=== PATIENT | male | born 1970 | race Caucasian/White ===

== ENCOUNTER 2017-07-18 07:20 | Inpatient (IN) | payer OTHER ==
[~2017-07-18] VITALS: Ht 170.2 cm; Wt 77.2 kg
[2017-07-18] MEDS ORDERED: DILTIAZEM 5 MG/ML, 5ML IVPush STA (07:41)
[2017-07-18 07:55] LABS: HEMATOCRIT 47.6 % (39.2-51.8); HEMOGLOBIN 15.9 g/dL (13.7-18.0); WHITE BLOOD COUNT 10.1 x10^3/uL (3.4-10)
[2017-07-18] MEDS ORDERED: SODIUM CHLORIDE 0.9% 1,000ML IVBOLUS ONE (08:00)
[2017-07-18] MEDS ORDERED: ASPIRIN 81 MG TABLET CHEW PO ONE (08:00)
[2017-07-18] MEDS ORDERED: SODIUM CHLORIDE FLUSH 10ML SYR IVF ONE (08:00)
[2017-07-18] MEDS ORDERED: ASPIRIN 81 MG TABLET CHEW ONE (08:03)
[2017-07-18] MEDS ORDERED: DILTIAZEM 5 MG/ML, 5ML ONE ×2 (08:04→09:07)
[2017-07-18 08:09] LABS: BLOOD UREA NITROGEN 11 mg/dL (7-18)
[2017-07-18 08:17] LABS: IS PT STATUS REG ER OR PRE ER? YES
[2017-07-18] MEDS ORDERED: DILTIAZEM 5 MG/ML, 5ML IVPush ONE (08:30)
[2017-07-18 09:17] LABS: DAU SCREEN DISCLAIMER
[2017-07-18] MEDS ORDERED: LISI2.5T PO (09:38)
[2017-07-18] MEDS ORDERED: PANT40TA3 PO (09:38)
[2017-07-18] MEDS ORDERED: DILT180C53 PO (09:38)
[2017-07-18] MEDS ORDERED: METO50TA82 PO (09:38)
[2017-07-18] MEDS ORDERED: WARF2.5T73 PO (09:38)
[2017-07-18] MEDS ORDERED: FURO-93 PO (09:38)
[2017-07-18] MEDS ORDERED: SIMV20TA3 PO (09:38)
[2017-07-18] MEDS ORDERED: DILTIAZEM 125 MG in SODIUM CHLORIDE 0.9% 100 ML IV PRN (10:30)
[2017-07-18] MEDS ORDERED: ACETAMINOPHEN 325 MG TABLET PO PRN (11:30)
[2017-07-18] MEDS ORDERED: BISACODYL 10 MG SUPP PR PRN (11:30)
[2017-07-18] MEDS ORDERED: ONDANSETRON ODT 4 MG PO PRN (11:30)
[2017-07-18] MEDS ORDERED: hydrALAzine 20 MG/ML, 1ML IVPush PRN (11:30)
[2017-07-18] MEDS ORDERED: ENALAPRILAT 1.25 MG/ML, 2ML IVPush PRN (11:30)
[2017-07-18] MEDS ORDERED: ONDANSETRON 2MG/ML, 2ML IVPush PRN (11:30)
[2017-07-18] MEDS ORDERED: DOCUSATE 100 MG CAPSULE PO PRN (11:30)
[2017-07-18] MEDS ORDERED: POLYETHYLENE GLYCOL 17 GM PACKET PO PRN (11:30)
[2017-07-18] MEDS ORDERED: GUAIFENESIN/DM 200-20MG, 10ML UDC PO PRN (11:30)
[2017-07-18] MEDS ORDERED: HYDROcodone/APAP 5/325 TABLET PO PRN (11:30)
[2017-07-18] MEDS ORDERED: morphine SULFATE 10 MG/ML, 1ML IVPush PRN (11:30)
[2017-07-18 11:41] VITALS: BP 157/110
[2017-07-18] MEDS ORDERED: HEPARIN 5,000 UNITS/ML, 1ML IV ONE (12:00)
[2017-07-18] MEDS: HEPARIN 25,000 UNITS/500ML PMX 500 ML IV PRN (12:40)
[2017-07-18] MEDS: METOPROLOL TARTRATE 50 MG TABLET PO SCH ×2 (12:56→20:14)
[2017-07-18] MEDS: LISINOPRIL 5 MG TABLET PO SCH (12:56)
[2017-07-18] MEDS: FUROSEMIDE 20 MG TABLET PO SCH (12:56)
[2017-07-18 14:46] VITALS: BP 145/101
[2017-07-18 15:46] LABS: IS PT STATUS REG ER OR PRE ER? NO
[2017-07-18] MEDS ORDERED: MAGNESIUM SULFATE PMX 2GM/50ML 50 ML IV ONE (16:30)
[2017-07-18] MEDS ORDERED: WARFARIN 5 MG TABLET PO-COUM ONE (18:00)
[2017-07-18 20:00] VITALS: BP 119/83
[2017-07-18] MEDS: HEPARIN 5,000 UNITS/ML, 1ML IV PRN (20:15)
[2017-07-18] MEDS: SIMVASTATIN 20 MG TABLET PO SCH (20:15)
[2017-07-18 21:26] LABS: IS PT STATUS REG ER OR PRE ER? NO
[2017-07-19 02:00] VITALS: BP 132/85
[2017-07-19 02:26] LABS: HEMATOCRIT 41.5 % (39.2-51.8); HEMOGLOBIN 13.9 g/dL (13.7-18.0); WHITE BLOOD COUNT 7.3 x10^3/uL (3.4-10)
[2017-07-19 02:34] LABS: BLOOD UREA NITROGEN 13 mg/dL (7-18)
[2017-07-19] MEDS: HEPARIN 5,000 UNITS/ML, 1ML IV PRN ×2 (03:59→20:03)
[2017-07-19 08:00] VITALS: BP 141/95
[2017-07-19] MEDS: LISINOPRIL 5 MG TABLET PO SCH (08:03)
[2017-07-19] MEDS: FUROSEMIDE 20 MG TABLET PO SCH (08:03)
[2017-07-19] MEDS: METOPROLOL TARTRATE 50 MG TABLET PO SCH ×2 (08:03→20:08)
[2017-07-19 09:00] VITALS: BP 132/84
[2017-07-19] MEDS: DILTIAZEM 30 MG TABLET PO SCH ×3 (10:46→20:08)
[2017-07-19 13:07] VITALS: BP 123/87
[2017-07-19] MEDS ORDERED: MAGNESIUM SULFATE PMX 4GM/100M 100 ML IV ONE (13:30)
[2017-07-19] MEDS ORDERED: POTASSIUM CHLORIDE 20 MEQ TAB.ER.PRT PO ONE (13:30)
[2017-07-19] MEDS: HEPARIN 25,000 UNITS/500ML PMX 500 ML IV PRN (15:47)
[2017-07-19] MEDS ORDERED: WARFARIN 5 MG TABLET PO-COUM SCH (18:00)
[2017-07-19 19:13] VITALS: BP 127/84
[2017-07-19] MEDS: SIMVASTATIN 20 MG TABLET PO SCH (20:08)
[2017-07-20 02:11] VITALS: BP 138/99
[2017-07-20 02:11] LABS: ANTI-Xa-UNFRACTIONATED HEP 0.34 IU/mL (0.30-0.70)
[2017-07-20 02:22] LABS: ASPARTATE AMINO TRANSFERASE 21 U/L (15-37); BLOOD UREA NITROGEN 17 mg/dL (7-18)
[2017-07-20 03:15] LABS: HEMATOCRIT 39.4 % (39.2-51.8); HEMOGLOBIN 13.1 g/dL (13.7-18.0); WHITE BLOOD COUNT 5.4 x10^3/uL (3.4-10)
[2017-07-20 06:20] VITALS: BP 143/92
[2017-07-20] MEDS: DILTIAZEM 30 MG TABLET PO SCH (06:24)
[2017-07-20 06:44] VITALS: BP 152/111
[2017-07-20] MEDS: LISINOPRIL 5 MG TABLET PO SCH (08:41)
[2017-07-20] MEDS: FUROSEMIDE 20 MG TABLET PO SCH (08:41)
[2017-07-20] MEDS: METOPROLOL TARTRATE 50 MG TABLET PO SCH ×2 (08:41→20:11)
[2017-07-20] MEDS: DILTIAZEM 60 MG TABLET PO SCH ×3 (12:10→20:10)
[2017-07-20 14:30] VITALS: BP 125/90
[2017-07-20] MEDS ORDERED: RIVAROXABAN 20 MG TABLET PO SCH (17:00)
[2017-07-20] MEDS ORDERED: WARFARIN 7.5 MG TABLET PO-COUM SCH (18:00)
[2017-07-20 18:52] VITALS: BP 121/80
[2017-07-20 20:07] VITALS: BP 117/77
[2017-07-20] MEDS: SIMVASTATIN 20 MG TABLET PO SCH (20:11)
[2017-07-21 01:31] VITALS: BP 124/86
[2017-07-21 05:26] LABS: BLOOD UREA NITROGEN 17 mg/dL (7-18)
[2017-07-21 05:41] VITALS: BP 145/85
[2017-07-21] MEDS: DILTIAZEM 60 MG TABLET PO SCH (05:44)
[2017-07-21] MEDS: METOPROLOL TARTRATE 50 MG TABLET PO SCH (07:45)
[2017-07-21] MEDS: FUROSEMIDE 20 MG TABLET PO SCH (07:45)
[2017-07-21] MEDS: LISINOPRIL 5 MG TABLET PO SCH (07:45)
[2017-07-21 07:49] VITALS: BP 148/112
[2017-07-21] MEDS ORDERED: RIVA20TA PO (08:22)
[2017-07-21] MEDS ORDERED: DILT240C80 PO (08:22)
[2017-07-21] MEDS ORDERED: PNEUMOCOCCAL 23 VACCINE IM-VACC ONE (09:30)
== END 2017-07-21 11:28 | disposition home or self-care (01) | DRG 291 ==
LOC: ED 07:42 → EDIP 10:24 → 5SO 11:35
PROVIDERS: ADMIT Internal Medicine
DX: I13.0 Hypertensive heart and chronic kidney disease with heart failure and stage 1 through stage 4 chronic kidney disease, or unspecified chronic kidney disease (principal); I50.23 Acute on chronic systolic (congestive) heart failure; D68.59 Other primary thrombophilia; N18.3 Chronic kidney disease, stage 3 (moderate); E44.1 Mild protein-calorie malnutrition; I48.0 Paroxysmal atrial fibrillation; E78.5 Hyperlipidemia, unspecified; F43.9 Reaction to severe stress, unspecified; I16.0 Hypertensive urgency; R07.81 Pleurodynia; D50.9 Iron deficiency anemia, unspecified; K21.9 Gastro-esophageal reflux disease without esophagitis; Z91.14 Patient's other noncompliance with medication regimen; Z68.26 Body mass index [BMI] 26.0-26.9, adult
CPT/HCPCS: 36415; 70450; 71010; 80048; 80053; 80307; 82040; 82607; 82746; 83735; 84100; 84439; 84443; 84484; 85025; 85520; 85610; 90732; 93005; 93306; 96361; 96374; J1644; J3475; J7030

== ENCOUNTER 2017-08-01 06:05 | Inpatient (IN) | payer MEDICAID, OTHER ==
[~2017-08-01] VITALS: Ht 170.2 cm; Wt 71.3 kg
[~2017-08-01 06:05] MED LIST: DILT180C53 PO; DILT240C80 PO; FURO-93 PO; LISI2.5T PO; METO50TA82 PO; PANT40TA3 PO; RIVA20TA PO; SIMV20TA3 PO; WARF2.5T73 PO
[2017-08-01] MEDS ORDERED: ENOXAPARIN 80 MG/0.8 ML SQ SCH (06:30)
[2017-08-01] MEDS ORDERED: DILTIAZEM 5 MG/ML, 5ML IVPush ONE (06:30)
[2017-08-01] MEDS ORDERED: DILTIAZEM 5 MG/ML, 5ML ONE (06:40)
[2017-08-01] MEDS ORDERED: ONDANSETRON 2MG/ML, 2ML IVPush ONE (07:00)
[2017-08-01] MEDS ORDERED: ASPIRIN 81 MG TABLET CHEW PO ONE (07:00)
[2017-08-01] MEDS ORDERED: MORPHINE SULFATE 4 MG/ML, 1ML IVPush PRN (07:00)
[2017-08-01 07:01] LABS: HEMOGLOBIN 15.4 g/dL (13.7-18.0); WHITE BLOOD COUNT 4.4 x10^3/uL (3.4-10)
[2017-08-01] MEDS ORDERED: ASPIRIN 81 MG TABLET CHEW ONE (07:10)
[2017-08-01] MEDS ORDERED: ENOXAPARIN 80 MG/0.8 ML ONE (07:10)
[2017-08-01] MEDS ORDERED: MORPHINE SULFATE 4 MG/ML, 1ML ONE (07:10)
[2017-08-01] MEDS ORDERED: ONDANSETRON 2MG/ML, 2ML ONE (07:11)
[2017-08-01 07:13] LABS: ASPARTATE AMINO TRANSFERASE 53 U/L (15-37); BLOOD UREA NITROGEN 9 mg/dL (7-18)
[2017-08-01 07:20] LABS: IS PT STATUS REG ER OR PRE ER? YES
[2017-08-01] MEDS ORDERED: TRAZODONE 50MG TABLET PO PRN (08:30)
[2017-08-01] MEDS ORDERED: DOCUSATE 100 MG CAPSULE PO PRN (08:30)
[2017-08-01] MEDS ORDERED: BISACODYL 10 MG SUPP PR PRN (08:30)
[2017-08-01] MEDS ORDERED: ONDANSETRON ODT 4 MG PO PRN (08:30)
[2017-08-01] MEDS ORDERED: ONDANSETRON 2MG/ML, 2ML IVPush PRN (08:30)
[2017-08-01] MEDS ORDERED: ACETAMINOPHEN 325 MG TABLET PO PRN (08:30)
[2017-08-01] MEDS ORDERED: HYDROcodone/APAP 5/325 TABLET PO PRN (08:30)
[2017-08-01] MEDS ORDERED: ENALAPRILAT 1.25 MG/ML, 2ML IVPush PRN (08:30)
[2017-08-01 08:48] LABS: IS PT STATUS REG ER OR PRE ER? YES
[2017-08-01] MEDS ORDERED: SODIUM CHLORIDE FLUSH 10ML SYR IVF ONE (09:00)
[2017-08-01 09:29] VITALS: BP 149/113
[2017-08-01] MEDS: PANTOPROZOLE 40MG TABLET PO SCH (12:08)
[2017-08-01] MEDS: METOPROLOL TARTRATE 50 MG TABLET PO SCH ×2 (12:08→20:55)
[2017-08-01] MEDS: FUROSEMIDE 20 MG TABLET PO SCH (12:08)
[2017-08-01] MEDS: LISINOPRIL 5 MG TABLET PO SCH (12:09)
[2017-08-01] MEDS: DILTIAZEM 240 MG CAP.ER.24H PO SCH (12:10)
[2017-08-01] MEDS ORDERED: LABETALOL 5MG/ML, 20ML IVPush PRN (13:00)
[2017-08-01 14:37] LABS: IS PT STATUS REG ER OR PRE ER? NO
[2017-08-01 15:02] VITALS: BP 159/115
[2017-08-01 15:35] VITALS: BP 123/80
[2017-08-01] MEDS ORDERED: RIVAROXABAN 20 MG TABLET PO SCH (17:00)
[2017-08-01 18:56] VITALS: BP 128/87
[2017-08-01] MEDS: ENOXAPARIN 80 MG/0.8 ML SQ SCH (20:54)
[2017-08-01] MEDS ORDERED: SIMVASTATIN 20 MG TABLET PO SCH (21:00)
[2017-08-02 02:03] VITALS: BP 127/77
[2017-08-02 05:17] LABS: HEMATOCRIT 42.1 % (39.2-51.8); HEMOGLOBIN 14.4 g/dL (13.7-18.0); WHITE BLOOD COUNT 6.3 x10^3/uL (3.4-10)
[2017-08-02 06:07] LABS: BLOOD UREA NITROGEN 16 mg/dL (7-18)
[2017-08-02 08:32] VITALS: BP 138/91
[2017-08-02] MEDS: ENOXAPARIN 80 MG/0.8 ML SQ SCH (08:35)
[2017-08-02] MEDS: FUROSEMIDE 20 MG TABLET PO SCH (08:36)
[2017-08-02] MEDS: PANTOPROZOLE 40MG TABLET PO SCH (08:36)
[2017-08-02] MEDS: LISINOPRIL 5 MG TABLET PO SCH (08:36)
[2017-08-02] MEDS: DILTIAZEM 240 MG CAP.ER.24H PO SCH (08:37)
[2017-08-02] MEDS: METOPROLOL TARTRATE 50 MG TABLET PO SCH (08:37)
[2017-08-02 11:52] LABS: DAU SCREEN DISCLAIMER
[2017-08-02] MEDS ORDERED: RIVA20TA PO (12:50)
[2017-08-02] MEDS ORDERED: DILT240C80 PO (12:50)
[2017-08-02] MEDS ORDERED: FURO-93 PO (12:50)
[2017-08-02] MEDS ORDERED: LISI2.5T PO (12:50)
[2017-08-02] MEDS ORDERED: SIMV20TA3 PO (12:50)
== END 2017-08-02 14:56 | disposition home or self-care (01) | DRG 309 ==
LOC: ED 06:20 → EDIP 07:27 → 5SO 09:26
PROVIDERS: ADMIT Hospitalist; ATTEND Hospitalist
DX: I48.91 Unspecified atrial fibrillation (principal); D68.59 Other primary thrombophilia; I13.0 Hypertensive heart and chronic kidney disease with heart failure and stage 1 through stage 4 chronic kidney disease, or unspecified chronic kidney disease; I50.22 Chronic systolic (congestive) heart failure; N18.3 Chronic kidney disease, stage 3 (moderate); E78.5 Hyperlipidemia, unspecified; K21.9 Gastro-esophageal reflux disease without esophagitis; Z79.82 Long term (current) use of aspirin; Z91.14 Patient's other noncompliance with medication regimen
CPT/HCPCS: 36415; 71010; 80048; 80053; 80307; 83735; 84100; 84443; 84484; 85025; 85610; 85730; 93005; 96372; 96374; 96375; J1650; J2405

== ENCOUNTER 2018-11-06 09:03 | Inpatient (IN) | payer MEDICAID, OTHER ==
[~2018-11-06] VITALS: Ht 170.2 cm; Wt 69.2 kg
[~2018-11-06 09:03] MED LIST changes: +MULT-658 PO; +WARF2.5T32 PO; -WARF2.5T73 PO
[2018-11-06] MEDS ORDERED: DILTIAZEM 5 MG/ML, 5ML ONE (09:18)
[2018-11-06] MEDS ORDERED: DILTIAZEM 60 MG TABLET ONE (09:18)
[2018-11-06] MEDS ORDERED: LISI-167 PO (09:19)
[2018-11-06] MEDS ORDERED: ASPI-496 PO (09:24)
[2018-11-06] MEDS ORDERED: APIX5TAB PO (09:24)
[2018-11-06] MEDS ORDERED: potassium PO (09:25)
[2018-11-06] MEDS ORDERED: DILTIAZEM 5 MG/ML, 5ML IVPush ONE ×2 (09:30→10:00)
[2018-11-06] MEDS ORDERED: DILTIAZEM 120 MG TABLET PO ONE (09:30)
[2018-11-06 09:33] LABS: BASOPHILS # (AUTO) 0.03 x10^3/uL (0-0.1); BASOPHILS % (AUTO) 1 % (0-1); EOSINOPHILS # (AUTO) 0.01 x10^3/uL (0-0.4); EOSINOPHILS % (AUTO) 0 % (1-7); LYMPHOCYTES # (AUTO) 0.54 x10^3/uL (1-3.4); LYMPHOCYTES % (AUTO) 14 % (22-44); MD NO; MEAN CORPUSCULAR HEMOGLOBIN 34.8 pg (27.5-34.5); MEAN CORPUSCULAR VOLUME 99.6 fL (81-97); MEAN PLATELET VOLUME 9.6 fL (7.4-10.4); MONOCYTES # (AUTO) 0.63 x10^3/uL (0.2-0.8); MONOCYTES % (AUTO) 17 % (2-9); NEUTROPHILS % (AUTO) 69 % (42-75); PLATELET COUNT 109 x10^3/uL (130-400); RED BLOOD COUNT 3.98 x10^6/uL (4.38-5.82)
[2018-11-06 09:41] LABS: INTERNATIONAL NORMALIZED RATIO 1.13 (0.93-1.1); PROTHROMBIN TIME 11.9 Seconds (9.6-11.5)
[2018-11-06 09:44] LABS: ALANINE AMINOTRANSFERASE 89 U/L (12-78); ALBUMIN 3.2 g/dL (3.4-5.0); ANION GAP 11 mmol/L (5-15); CALCIUM 8.8 mg/dL (8.5-10.1); CHLORIDE 106 mmol/L (98-107); CREATININE 1.22 mg/dL (0.7-1.3)
[2018-11-06 09:48] LABS: ALKALINE PHOSPHATASE 75 U/L (45-117); BILIRUBIN,TOTAL 0.9 mg/dL (0.2-1.0); TOTAL PROTEIN 6.4 g/dL (6.4-8.2)
[2018-11-06] MEDS ORDERED: ASPIRIN 81 MG TABLET CHEW ONE (09:57)
[2018-11-06] MEDS ORDERED: ASPIRIN 81 MG TABLET CHEW PO ONE (10:00)
[2018-11-06] MEDS ORDERED: SODIUM CHLORIDE 0.9%, 500ML IVBOLUS ONE (10:00)
[2018-11-06 10:10] LABS: TROPONIN I < 0.015 ng/mL (0.000-0.045)
[2018-11-06] MEDS ORDERED: APIXABAN 5 MG TABLET PO SCH (11:30)
[2018-11-06] MEDS ORDERED: POTASSIUM CHLORIDE 20 MEQ TAB.ER.PRT PO SCH (11:30)
[2018-11-06] MEDS ORDERED: DILTIAZEM HCL 240 MG PO SCH (11:30)
[2018-11-06] MEDS ORDERED: LISINOPRIL 10 MG TABLET PO SCH (11:30)
[2018-11-06] MEDS ORDERED: TEMAZEPAM 15 MG CAPSULE PO PRN (11:30)
[2018-11-06] MEDS ORDERED: NITROGLYCERIN 0.4 MG BOTTLE (25 TABS) SL PRN (11:30)
[2018-11-06] MEDS ORDERED: hydrALAzine 20 MG/ML, 1ML IVPush PRN (11:30)
[2018-11-06] MEDS ORDERED: DILTIAZEM 125 MG in SODIUM CHLORIDE 0.9% 100 ML IV SCH (11:30)
[2018-11-06] MEDS ORDERED: ONDANSETRON 2MG/ML, 2ML IVPush PRN (11:30)
[2018-11-06] MEDS ORDERED: morphine SULFATE 10 MG/ML, 1ML IVPush PRN (11:30)
[2018-11-06 12:02] VITALS: BP 114/71
[2018-11-06] MEDS ORDERED: LISINOPRIL 5 MG TABLET PO SCH (12:14)
[2018-11-06] MEDS ORDERED: DILTIAZEM 60 MG TABLET PO SCH ×3 (12:30→18:30)
[2018-11-06] MEDS: ACETAMINOPHEN 325 MG TABLET PO PRN ×2 (12:33→21:57)
[2018-11-06] MEDS: ASPIRIN 81 MG TABLET EC PO SCH (12:39)
[2018-11-06 13:18] LABS: TROPONIN I < 0.015 ng/mL (0.000-0.045)
[2018-11-06 14:32] VITALS: BP 114/71
[2018-11-06 15:13] LABS: TROPONIN I < 0.015 ng/mL (0.000-0.045)
[2018-11-06 16:34] VITALS: BP 135/95
[2018-11-06] MEDS: DILTIAZEM 60 MG TABLET PO SCH ×2 (16:35→21:57)
[2018-11-06] MEDS ORDERED: FUROSEMIDE 20 MG/2 ML IV SCH (17:00)
[2018-11-06 19:43] VITALS: BP 117/86
[2018-11-06] MEDS: SIMVASTATIN 20 MG TABLET PO SCH (21:57)
[2018-11-07 01:23] VITALS: BP 137/99
[2018-11-07] MEDS: DILTIAZEM 60 MG TABLET PO SCH (04:10)
[2018-11-07 05:41] LABS: ALANINE AMINOTRANSFERASE 74 U/L (12-78); ALBUMIN 3.2 g/dL (3.4-5.0); ANION GAP 12 mmol/L (5-15); BASOPHILS # (AUTO) 0.04 x10^3/uL (0-0.1); BASOPHILS % (AUTO) 1 % (0-1); CALCIUM 8.4 mg/dL (8.5-10.1); CHLORIDE 103 mmol/L (98-107); CREATININE 1.43 mg/dL (0.7-1.3); EOSINOPHILS # (AUTO) 0.03 x10^3/uL (0-0.4); EOSINOPHILS % (AUTO) 0 % (1-7); LYMPHOCYTES # (AUTO) 1.46 x10^3/uL (1-3.4); LYMPHOCYTES % (AUTO) 19 % (22-44); MD NO; MEAN CORPUSCULAR HEMOGLOBIN 34.3 pg (27.5-34.5); MEAN CORPUSCULAR VOLUME 100.9 fL (81-97); MEAN PLATELET VOLUME 9.8 fL (7.4-10.4); MONOCYTES # (AUTO) 1.07 x10^3/uL (0.2-0.8); MONOCYTES % (AUTO) 14 % (2-9); NEUTROPHILS # (AUTO) 5.05 x10^3/uL (1.8-6.8); NEUTROPHILS % (AUTO) 66 % (42-75); PLATELET COUNT 107 x10^3/uL (130-400); RED CELL DISTRIBUTION WIDTH 13.1 % (9.4-14.8)
[2018-11-07 05:44] LABS: ALKALINE PHOSPHATASE 72 U/L (45-117); BILIRUBIN,TOTAL 0.7 mg/dL (0.2-1.0); TOTAL PROTEIN 6.5 g/dL (6.4-8.2)
[2018-11-07] MEDS: OMEPRAZOLE 20 MG CAPSULE.DR PO SCH (05:48)
[2018-11-07 07:37] VITALS: BP 139/98
[2018-11-07] MEDS ORDERED: MAGNESIUM SULFATE 6 GM in SODIUM CHLORIDE 0.9% 250 ML IV ONE ×2 (08:00→08:30)
[2018-11-07] MEDS ORDERED: POTASSIUM CHLORIDE 20 MEQ TAB.ER.PRT PO ONE (08:00)
[2018-11-07] MEDS ORDERED: REGADENOSON 0.4 MG/5 ML SYRINGE ONE (08:15)
[2018-11-07 08:54] LABS: RAPID INFLUENZA A Negative (Negative); RAPID INFLUENZA B Negative (Negative)
[2018-11-07] MEDS: FUROSEMIDE 20 MG/2 ML IV SCH (09:39)
[2018-11-07] MEDS: ASPIRIN 81 MG TABLET EC PO SCH (09:40)
[2018-11-07] MEDS: DILTIAZEM 240 MG CAP.ER.24H PO SCH (09:40)
[2018-11-07] MEDS: APIXABAN 5 MG TABLET PO SCH ×2 (09:40→20:37)
[2018-11-07] MEDS ORDERED: DIGOXIN 0.25 MG/ML, 2ML IVPush ONE (10:30)
[2018-11-07] MEDS ORDERED: DIGOXIN 0.25 MG/ML, 2ML ONE (10:33)
[2018-11-07 10:36] VITALS: BP 149/94
[2018-11-07 13:32] VITALS: BP 124/84
[2018-11-07 15:16] LABS: CULTURE INDICATED? NO; MICROSCOPIC NOT IND
[2018-11-07 20:00] VITALS: BP 128/80
[2018-11-07] MEDS: SIMVASTATIN 20 MG TABLET PO SCH (20:37)
[2018-11-08] VITALS (7 sets, daily range): BP systolic 130–158; BP diastolic 85–102
[2018-11-08] MEDS ORDERED: ALBUTEROL SULFATE 2.5 MG/3 ML ONE (00:44)
[2018-11-08 04:58] LABS: BASOPHILS # (AUTO) 0.03 x10^3/uL (0-0.1); BASOPHILS % (AUTO) 0 % (0-1); EOSINOPHILS # (AUTO) 0.01 x10^3/uL (0-0.4); EOSINOPHILS % (AUTO) 0 % (1-7); LYMPHOCYTES % (AUTO) 13 % (22-44); MD NO; MEAN CORPUSCULAR HEMOGLOBIN 34.3 pg (27.5-34.5); MEAN CORPUSCULAR HGB CONC 34.9 g/dL (33.2-36.2); MEAN CORPUSCULAR VOLUME 98.2 fL (81-97); MEAN PLATELET VOLUME 9.2 fL (7.4-10.4); MONOCYTES # (AUTO) 0.86 x10^3/uL (0.2-0.8); MONOCYTES % (AUTO) 13 % (2-9); NEUTROPHILS # (AUTO) 4.93 x10^3/uL (1.8-6.8); NEUTROPHILS % (AUTO) 73 % (42-75); PLATELET COUNT 106 x10^3/uL (130-400); RED BLOOD COUNT 3.82 x10^6/uL (4.38-5.82); RED CELL DISTRIBUTION WIDTH 12.5 % (9.4-14.8)
[2018-11-08 05:13] LABS: ALANINE AMINOTRANSFERASE 53 U/L (12-78); ALBUMIN 2.8 g/dL (3.4-5.0); ANION GAP 11 mmol/L (5-15); CALCIUM 7.6 mg/dL (8.5-10.1); CHLORIDE 100 mmol/L (98-107); CREATININE 1.08 mg/dL (0.7-1.3)
[2018-11-08 05:16] LABS: ALKALINE PHOSPHATASE 66 U/L (45-117); BILIRUBIN,TOTAL 1.1 mg/dL (0.2-1.0); TOTAL PROTEIN 6.1 g/dL (6.4-8.2)
[2018-11-08] MEDS: OMEPRAZOLE 20 MG CAPSULE.DR PO SCH (06:00)
[2018-11-08] MEDS: APIXABAN 5 MG TABLET PO SCH ×2 (08:08→20:56)
[2018-11-08] MEDS: ASPIRIN 81 MG TABLET EC PO SCH (08:09)
[2018-11-08] MEDS: DILTIAZEM 240 MG CAP.ER.24H PO SCH (08:09)
[2018-11-08] MEDS: FUROSEMIDE 20 MG/2 ML IV SCH (08:09)
[2018-11-08] MEDS ORDERED: REGADENOSON 0.4 MG/5 ML SYRINGE ONE (10:50)
[2018-11-08] MEDS: SIMVASTATIN 20 MG TABLET PO SCH (20:56)
[2018-11-09 01:16] VITALS: BP 160/95
[2018-11-09 05:01] LABS: ANION GAP 8 mmol/L (5-15); CALCIUM 7.9 mg/dL (8.5-10.1); CHLORIDE 99 mmol/L (98-107); CREATININE 1.08 mg/dL (0.7-1.3)
[2018-11-09] MEDS: OMEPRAZOLE 20 MG CAPSULE.DR PO SCH (06:01)
[2018-11-09 07:00] VITALS: BP 150/105
[2018-11-09] MEDS: POTASSIUM CHLORIDE 20 MEQ TAB.ER.PRT PO SCH ×2 (10:03→17:52)
[2018-11-09] MEDS: DILTIAZEM 240 MG CAP.ER.24H PO SCH (10:03)
[2018-11-09] MEDS: APIXABAN 5 MG TABLET PO SCH (10:04)
[2018-11-09] MEDS: FUROSEMIDE 20 MG/2 ML IV SCH (10:04)
[2018-11-09] MEDS: ASPIRIN 81 MG TABLET EC PO SCH (10:04)
[2018-11-09 13:15] VITALS: BP 133/99
[2018-11-09] MEDS ORDERED: DILT240C80 PO (13:17)
[2018-11-09] MEDS ORDERED: potassium PO (13:17)
[2018-11-09] MEDS ORDERED: FURO-93 PO (13:17)
[2018-11-09] MEDS ORDERED: SIMV20TA3 PO (13:17)
[2018-11-09] MEDS ORDERED: APIX5TAB PO ×3 (13:17→15:32)
[2018-11-09] MEDS ORDERED: LISI-167 PO (13:17)
== END 2018-11-09 18:48 | disposition home or self-care (01) | DRG 291 ==
LOC: ED 10:34 → EDIP 10:46 → 5SO 11:45
PROVIDERS: ADMIT Internal Medicine; ATTEND Internal Medicine
DX: I11.0 Hypertensive heart disease with heart failure (principal); J96.00 Acute respiratory failure, unspecified whether with hypoxia or hypercapnia; I50.21 Acute systolic (congestive) heart failure; N17.9 Acute kidney failure, unspecified; D68.69 Other thrombophilia; I48.91 Unspecified atrial fibrillation; I27.20 Pulmonary hypertension, unspecified; K21.9 Gastro-esophageal reflux disease without esophagitis; E83.42 Hypomagnesemia; E78.5 Hyperlipidemia, unspecified; Z91.19 Patient's noncompliance with other medical treatment and regimen; Z79.01 Long term (current) use of anticoagulants; T50.1X5A Adverse effect of loop [high-ceiling] diuretics, initial encounter
CPT/HCPCS: 36415; 71045; 78452; 80048; 80053; 81003; 83735; 83880; 84100; 84443; 84484; 85025; 85610; 85730; 87040; 87400; 93005; 93017; 94640; 96374; 96375; 99291; G0378; J2785; J3475; A9502; C9898; J1160; J1940; J2270; J7040; J7050

== ENCOUNTER 2019-01-02 16:27 | Inpatient (IN) | payer MEDICAID ==
[~2019-01-02] VITALS: Ht 170.2 cm; Wt 72.4 kg
[~2019-01-02 16:27] MED LIST changes: +APIX5TAB PO; +ASPI-496 PO; +LISI-167 PO; +potassium PO
[2019-01-02 16:59] LABS: BASOPHILS # (AUTO) 0.04 x10^3/uL (0-0.1); BASOPHILS % (AUTO) 1 % (0-1); EOSINOPHILS # (AUTO) 0.05 x10^3/uL (0-0.4); EOSINOPHILS % (AUTO) 1 % (1-7); LYMPHOCYTES # (AUTO) 1.74 x10^3/uL (1-3.4); LYMPHOCYTES % (AUTO) 19 % (22-44); MD NO; MEAN CORPUSCULAR HEMOGLOBIN 31.3 pg (27.5-34.5); MEAN CORPUSCULAR HGB CONC 32.8 g/dL (33.2-36.2); MEAN CORPUSCULAR VOLUME 95.6 fL (81-97); MEAN PLATELET VOLUME 9.2 fL (7.4-10.4); MONOCYTES # (AUTO) 0.62 x10^3/uL (0.2-0.8); MONOCYTES % (AUTO) 7 % (2-9); NEUTROPHILS # (AUTO) 6.69 x10^3/uL (1.8-6.8); NEUTROPHILS % (AUTO) 73 % (42-75); PLATELET COUNT 192 x10^3/uL (130-400); RED BLOOD COUNT 4.97 x10^6/uL (4.38-5.82); RED CELL DISTRIBUTION WIDTH 13.3 % (9.4-14.8)
[2019-01-02] MEDS ORDERED: SODIUM CHLORIDE FLUSH 10ML SYR IVF ONE (17:00)
[2019-01-02] MEDS ORDERED: DILTIAZEM 125 MG in DEXTROSE 5% 100 ML IV SCH (17:02)
--- NOTE | 2019-01-02 17:05 | NUR ---
TASK RN: MEDICATION REQUESTED FROM PHARMACY
[2019-01-02] MEDS ORDERED: DILTIAZEM 5 MG/ML, 5ML ONE (17:08)
[2019-01-02 17:11] LABS: ALANINE AMINOTRANSFERASE 48 U/L (12-78); ALBUMIN 3.5 g/dL (3.4-5.0); ANION GAP 9 mmol/L (5-15); CALCIUM 8.9 mg/dL (8.5-10.1); CHLORIDE 107 mmol/L (98-107); CREATININE 1.28 mg/dL (0.7-1.3)
[2019-01-02 17:16] LABS: ALKALINE PHOSPHATASE 74 U/L (45-117); BILIRUBIN,TOTAL 1.9 mg/dL (0.2-1.0); TOTAL PROTEIN 7.1 g/dL (6.4-8.2); TROPONIN I 0.019 ng/mL (0.000-0.045)
[2019-01-02 17:29] LABS: INTERNATIONAL NORMALIZED RATIO 1.1 (0.93-1.1); PROTHROMBIN TIME 11.6 Seconds (9.6-11.5)
[2019-01-02] MEDS ORDERED: DILTIAZEM 5 MG/ML, 5ML IV ONE (17:30)
--- NOTE | 2019-01-02 17:52 | NUR ---
Pt in CT, report to rn Mandy, pt care transferred at this time.
[2019-01-02] MEDS ORDERED: OMNIPAQUE 350 MG/ML, 100ML BOTTLE ONE (17:59)
--- NOTE | 2019-01-02 18:07 | NUR ---
REPORT RECEIVEDF JAMI DAVENPORT RN. PT RESTING [place], MONITORS IN PLACE, CALL LIGHT WITHIN REACH. AWAITING CT RESULT
[2019-01-02] MEDS ORDERED: METRONIDAZOLE PMX 500MG/100ML 100 ML IVPB ONE (19:00)
[2019-01-02] MEDS ORDERED: CIPROFLOXACIN/PMX 400MG/200ML 100 ML IVPB ONE (19:00)
[2019-01-02] MEDS ORDERED: SODIUM CHLORIDE FLUSH 10ML SYR IVF PRN (19:00)
--- NOTE | 2019-01-02 19:20 | NUR ---
pt resting on gurney, monitors in place, call light within reach, mitchell infusing, see mar. awaiting room for transfer
[2019-01-02] MEDS ORDERED: CIPROFLOXACIN/PMX 400MG/200ML 200 ML ONE (19:56)
--- NOTE | 2019-01-02 20:03 | NUR ---
PT RESTING CALMLY, MONITORS IN PLACE, REPORT GIVEN TO PLACIDO ARCHER. IV ABX STARTED. AQWAITING TRANSFER TO FLOOR
[2019-01-02] MEDS ORDERED: DILTIAZEM 125 MG in SODIUM CHLORIDE 0.9% 100 ML IV SCH (20:30)
[2019-01-02] MEDS ORDERED: ACETAMINOPHEN 325 MG TABLET PO PRN (20:30)
[2019-01-02] MEDS ORDERED: morphine SULFATE 10 MG/ML, 1ML IVPush PRN (20:30)
[2019-01-02] MEDS ORDERED: BISACODYL 10 MG SUPP PR PRN (20:30)
[2019-01-02] MEDS ORDERED: ONDANSETRON 2MG/ML, 2ML IVPush PRN (20:30)
[2019-01-02] MEDS ORDERED: POLYETHYLENE GLYCOL 17 GM PACKET PO PRN (20:30)
[2019-01-02 20:37] VITALS: BP_SYST 144; BP_SYST 154; BP_DIAS 102; BP_DIAS 107
[2019-01-02 22:41] VITALS: BP 130/83
[2019-01-02] MEDS: LISINOPRIL 5 MG TABLET PO SCH (22:45)
[2019-01-02] MEDS: METRONIDAZOLE PMX 500MG/100ML 100 ML IV SCH (22:46)
[2019-01-02] MEDS: SIMVASTATIN 20 MG TABLET PO SCH (22:46)
[2019-01-02] MEDS: APIXABAN 5 MG TABLET PO SCH (22:46)
[2019-01-02] MEDS: SODIUM CHLORIDE FLUSH 10ML SYR IVF SCH (22:47)
[2019-01-02] MEDS ORDERED: APIX5TAB PO (23:00)
[2019-01-02 23:39] LABS: TROPONIN I 0.024 ng/mL (0.000-0.045)
[2019-01-03 00:44] VITALS: BP 121/88
[2019-01-03 05:01] LABS: BASOPHILS # (AUTO) 0.04 x10^3/uL (0-0.1); BASOPHILS % (AUTO) 0 % (0-1); EOSINOPHILS # (AUTO) 0.15 x10^3/uL (0-0.4); EOSINOPHILS % (AUTO) 2 % (1-7); LYMPHOCYTES # (AUTO) 1.59 x10^3/uL (1-3.4); LYMPHOCYTES % (AUTO) 18 % (22-44); MD NO; MEAN CORPUSCULAR HEMOGLOBIN 32.2 pg (27.5-34.5); MEAN CORPUSCULAR HGB CONC 34.1 g/dL (33.2-36.2); MEAN CORPUSCULAR VOLUME 94.4 fL (81-97); MEAN PLATELET VOLUME 8.9 fL (7.4-10.4); MONOCYTES # (AUTO) 0.87 x10^3/uL (0.2-0.8); MONOCYTES % (AUTO) 10 % (2-9); NEUTROPHILS # (AUTO) 6.23 x10^3/uL (1.8-6.8); NEUTROPHILS % (AUTO) 70 % (42-75); PLATELET COUNT 171 x10^3/uL (130-400); RED BLOOD COUNT 4.21 x10^6/uL (4.38-5.82); RED CELL DISTRIBUTION WIDTH 13.5 % (9.4-14.8)
[2019-01-03 05:04] LABS: CHLORIDE 107 mmol/L (98-107)
[2019-01-03] MEDS: DILTIAZEM 125 MG in SODIUM CHLORIDE 0.9% 100 ML IV SCH ×2 (05:13→15:41)
[2019-01-03 05:15] LABS: ALANINE AMINOTRANSFERASE 32 U/L (12-78); ALBUMIN 2.7 g/dL (3.4-5.0); ALKALINE PHOSPHATASE 63 U/L (45-117); ANION GAP 8 mmol/L (5-15); BILIRUBIN,TOTAL 1.8 mg/dL (0.2-1.0); CALCIUM 8.4 mg/dL (8.5-10.1); CREATININE 1.09 mg/dL (0.7-1.3); TOTAL PROTEIN 5.6 g/dL (6.4-8.2); TROPONIN I 0.018 ng/mL (0.000-0.045)
[2019-01-03] MEDS: METRONIDAZOLE PMX 500MG/100ML 100 ML IV SCH ×3 (06:28→23:13)
[2019-01-03] MEDS: LISINOPRIL 5 MG TABLET PO SCH ×2 (07:50→20:31)
[2019-01-03] MEDS: APIXABAN 5 MG TABLET PO SCH ×2 (07:50→20:31)
[2019-01-03] MEDS: POTASSIUM CHLORIDE 10 MEQ TABLET.ER PO SCH (07:50)
[2019-01-03] MEDS: FUROSEMIDE 20 MG TABLET PO SCH (07:50)
[2019-01-03] MEDS: SODIUM CHLORIDE FLUSH 10ML SYR IVF SCH ×2 (07:53→20:31)
[2019-01-03] MEDS: SENNA/DOCUSATE TABLET PO SCH (07:53)
[2019-01-03 08:38] VITALS: BP 116/72
[2019-01-03] MEDS: CIPROFLOXACIN/PMX 400MG/200ML 200 ML IV SCH ×2 (09:26→20:31)
[2019-01-03 12:40] VITALS: BP 110/68
[2019-01-03] MEDS ORDERED: DILTIAZEM 240 MG CAP.ER.24H PO SCH (18:00)
[2019-01-03] MEDS ORDERED: DILTIAZEM 125 MG in SODIUM CHLORIDE 0.9% 100 ML IV SCH ×3 (18:00→20:30)
[2019-01-03 19:05] VITALS: BP 110/75
[2019-01-03] MEDS: SIMVASTATIN 20 MG TABLET PO SCH (20:31)
[2019-01-04 01:50] VITALS: BP 97/61
[2019-01-04] MEDS: METRONIDAZOLE PMX 500MG/100ML 100 ML IV SCH ×3 (06:33→22:55)
[2019-01-04 07:08] VITALS: BP 108/73
[2019-01-04] MEDS: CIPROFLOXACIN/PMX 400MG/200ML 200 ML IV SCH ×2 (08:23→19:48)
[2019-01-04] MEDS: SODIUM CHLORIDE FLUSH 10ML SYR IVF SCH ×2 (08:23→19:49)
[2019-01-04] MEDS: FUROSEMIDE 20 MG TABLET PO SCH (08:24)
[2019-01-04] MEDS: POTASSIUM CHLORIDE 10 MEQ TABLET.ER PO SCH (08:24)
[2019-01-04] MEDS: ASPIRIN 81 MG TABLET EC PO SCH (08:24)
[2019-01-04] MEDS: SENNA/DOCUSATE TABLET PO SCH (08:24)
[2019-01-04] MEDS: APIXABAN 5 MG TABLET PO SCH ×2 (08:25→19:49)
[2019-01-04] MEDS: LISINOPRIL 5 MG TABLET PO SCH ×2 (08:25→19:49)
[2019-01-04 12:37] VITALS: BP 107/73
[2019-01-04] MEDS: POLYETHYLENE GLYCOL 17 GM PACKET PO SCH (13:07)
[2019-01-04] MEDS: DOCUSATE 100 MG CAPSULE PO SCH (13:07)
[2019-01-04] MEDS: DILTIAZEM 240 MG CAP.ER.24H PO SCH (18:18)
[2019-01-04 18:24] VITALS: BP 133/82
[2019-01-04] MEDS: SIMVASTATIN 20 MG TABLET PO SCH (19:49)
[2019-01-05 01:46] VITALS: BP 118/76
[2019-01-05] MEDS: METRONIDAZOLE PMX 500MG/100ML 100 ML IV SCH ×2 (06:04→15:01)
[2019-01-05] MEDS: CIPROFLOXACIN/PMX 400MG/200ML 200 ML IV SCH (08:16)
[2019-01-05] MEDS: SODIUM CHLORIDE FLUSH 10ML SYR IVF SCH (08:16)
[2019-01-05] MEDS: ASPIRIN 81 MG TABLET EC PO SCH (08:16)
[2019-01-05] MEDS: FUROSEMIDE 20 MG TABLET PO SCH (08:17)
[2019-01-05] MEDS: LISINOPRIL 5 MG TABLET PO SCH (08:17)
[2019-01-05] MEDS: POTASSIUM CHLORIDE 10 MEQ TABLET.ER PO SCH (08:17)
[2019-01-05] MEDS: APIXABAN 5 MG TABLET PO SCH (08:17)
[2019-01-05] MEDS: SENNA/DOCUSATE TABLET PO SCH (08:32)
[2019-01-05] MEDS: POLYETHYLENE GLYCOL 17 GM PACKET PO SCH (08:32)
[2019-01-05] MEDS: DOCUSATE 100 MG CAPSULE PO SCH (08:32)
[2019-01-05 08:42] VITALS: BP 132/87
[2019-01-05] MEDS ORDERED: LACTULOSE 20 GM/30 ML UDC PO ONE (11:00)
[2019-01-05 15:56] VITALS: BP 136/100
[2019-01-05] MEDS ORDERED: BISACODYL 10 MG SUPP PR PRN (16:30)
[2019-01-05] MEDS: DILTIAZEM 240 MG CAP.ER.24H PO SCH (17:30)
[2019-01-05] MEDS ORDERED: DILT240C80 PO (17:50)
[2019-01-05] MEDS ORDERED: METR-90 PO (17:50)
[2019-01-05] MEDS ORDERED: CIPR250T27 PO (17:50)
[2019-01-05] MEDS ORDERED: APIX5TAB PO (17:50)
[2019-01-05] MEDS ORDERED: DOCU-131 PO (17:50)
== END 2019-01-05 18:51 | disposition home or self-care (01) | DRG 391 ==
LOC: ED 19:33 → EDIP 19:34 → 5SO 20:28
PROVIDERS: ADMIT Hospitalist; ATTEND Hospitalist
DX: K57.32 Diverticulitis of large intestine without perforation or abscess without bleeding (principal); I50.43 Acute on chronic combined systolic (congestive) and diastolic (congestive) heart failure; D68.69 Other thrombophilia; I48.2 Chronic atrial fibrillation; K59.00 Constipation, unspecified; E78.5 Hyperlipidemia, unspecified; K21.9 Gastro-esophageal reflux disease without esophagitis; Z59.0 Homelessness; I11.0 Hypertensive heart disease with heart failure; R00.0 Tachycardia, unspecified; Z66 Do not resuscitate; Z79.01 Long term (current) use of anticoagulants; Z82.49 Family history of ischemic heart disease and other diseases of the circulatory system; Z91.14 Patient's other noncompliance with medication regimen
CPT/HCPCS: 36415; 71045; 74018; 74177; 80053; 83605; 83690; 83880; 84484; 85025; 85610; 85730; 87040; 93005; 96365; 96366; G0378; J0744; Q9967

== ENCOUNTER 2019-01-21 17:57 | Inpatient (IN) | payer MEDICAID ==
[~2019-01-21] VITALS: Ht 170.2 cm; Wt 68.6 kg
[~2019-01-21 17:57] MED LIST changes: +CIPR250T27 PO; +DOCU-131 PO; +METR-90 PO
[2019-01-21] MEDS ORDERED: SODIUM CHLORIDE FLUSH 10ML SYR IVF ONE ×2 (18:30→19:00)
[2019-01-21 18:33] LABS: BASOPHILS # (AUTO) 0.08 x10^3/uL (0-0.1); BASOPHILS % (AUTO) 1 % (0-1); EOSINOPHILS # (AUTO) 0.07 x10^3/uL (0-0.4); EOSINOPHILS % (AUTO) 1 % (1-7); LYMPHOCYTES # (AUTO) 2.13 x10^3/uL (1-3.4); LYMPHOCYTES % (AUTO) 15 % (22-44); MD NO; MEAN CORPUSCULAR HEMOGLOBIN 31.7 pg (27.5-34.5); MEAN CORPUSCULAR HGB CONC 33.9 g/dL (33.2-36.2); MEAN CORPUSCULAR VOLUME 93.4 fL (81-97); MEAN PLATELET VOLUME 8.5 fL (7.4-10.4); MONOCYTES # (AUTO) 0.86 x10^3/uL (0.2-0.8); MONOCYTES % (AUTO) 6 % (2-9); NEUTROPHILS # (AUTO) 10.67 x10^3/uL (1.8-6.8); NEUTROPHILS % (AUTO) 77 % (42-75); PLATELET COUNT 205 x10^3/uL (130-400); RED BLOOD COUNT 4.73 x10^6/uL (4.38-5.82); RED CELL DISTRIBUTION WIDTH 12.6 % (9.4-14.8)
[2019-01-21 18:38] LABS: ALANINE AMINOTRANSFERASE 22 U/L (12-78); ALBUMIN 3.4 g/dL (3.4-5.0); ANION GAP 8 mmol/L (5-15); CALCIUM 8.7 mg/dL (8.5-10.1); CHLORIDE 105 mmol/L (98-107); CREATININE 1.15 mg/dL (0.7-1.3)
[2019-01-21 18:40] LABS: ALKALINE PHOSPHATASE 67 U/L (45-117); BILIRUBIN,TOTAL 0.9 mg/dL (0.2-1.0); TOTAL PROTEIN 7.2 g/dL (6.4-8.2)
[2019-01-21] MEDS ORDERED: MORPHINE SULFATE 4 MG/ML, 1ML ONE ×2 (18:57→21:45)
[2019-01-21] MEDS ORDERED: ONDANSETRON 2MG/ML, 2ML ONE (18:57)
[2019-01-21 18:58] LABS: INTERNATIONAL NORMALIZED RATIO 1.09 (0.93-1.1); PROTHROMBIN TIME 11.4 Seconds (9.6-11.5)
[2019-01-21] MEDS ORDERED: ONDANSETRON 2MG/ML, 2ML IVPush ONE (19:00)
[2019-01-21] MEDS ORDERED: MORPHINE SULFATE 4 MG/ML, 1ML IVPush PRN (19:00)
[2019-01-21] MEDS ORDERED: PLEASE ENTER WEIGHT MC SCH (19:00)
[2019-01-21 19:04] LABS: MICROSCOPIC NOT IND
[2019-01-21 19:11] LABS: CULTURE INDICATED? NO
--- NOTE | 2019-01-21 19:13 | NUR ---
IV SITE STARTED, MEDICATED PER JAN. PT TO CT
[2019-01-21] MEDS ORDERED: DIGO125T PO (19:16)
[2019-01-21] MEDS ORDERED: METO200T47 PO (19:16)
[2019-01-21] MEDS ORDERED: OMNIPAQUE 350 MG/ML, 100ML BOTTLE ONE (19:32)
--- NOTE | 2019-01-21 20:12 | NUR ---
LATE ENTRY 2001-PROVIDED PT WITH HAT DISCUSSED NEED FOR STOOL SAMPLE, PT STATED UNABLE TO PROVIDE SAMPLE AT THIS TIME
[2019-01-21] MEDS ORDERED: CIPROFLOXACIN/PMX 400MG/200ML 200 ML ONE (20:20)
--- NOTE | 2019-01-21 20:27 | NUR ---
PT RESTING CALMLY, DENIES NEEDS AT THIS TIME, CALL LIGHT WITHIN REACH, AWAITING LAB AT THIS TIME
[2019-01-21] MEDS ORDERED: CIPROFLOXACIN/PMX 400MG/200ML 200 ML IV ONE (20:30)
[2019-01-21] MEDS ORDERED: METRONIDAZOLE PMX 500MG/100ML 100 ML IV ONE (20:30)
--- NOTE | 2019-01-21 21:11 | NUR ---
TP: PT HAS [place] INS. [facility] WILL NOT ACCEPT TRANSFER. PT TO BE ADMITTED TO MEDICAL
[2019-01-21] MEDS ORDERED: ONDANSETRON ODT 4 MG PO PRN (22:00)
[2019-01-21] MEDS ORDERED: TEMAZEPAM 15 MG CAPSULE PO PRN (22:00)
[2019-01-21] MEDS ORDERED: ENALAPRILAT 1.25 MG/ML, 2ML IVPush PRN (22:00)
[2019-01-21] MEDS ORDERED: DOCUSATE 100 MG CAPSULE PO PRN (22:00)
--- NOTE | 2019-01-21 22:01 | NUR ---
REPORT FROM LIDIA CUMMINS. PT RESTING. WAITING FOR BED ASSIGNMENT. CALL LIGHT IN REACH
[2019-01-21 23:30] VITALS: BP 108/64
[2019-01-22] MEDS: METRONIDAZOLE PMX 500MG/100ML 100 ML IV SCH ×4 (00:29→18:41)
[2019-01-22] MEDS: LISINOPRIL 5 MG TABLET PO SCH ×3 (00:30→20:25)
[2019-01-22] MEDS: APIXABAN 5 MG TABLET PO SCH ×3 (00:30→20:25)
[2019-01-22] MEDS: SIMVASTATIN 20 MG TABLET PO SCH ×2 (00:30→20:25)
[2019-01-22 00:45] VITALS: BP 99/72
[2019-01-22 04:08] LABS: CLOSTRIDIUM DIFFICILE ANTIGEN NEGATIVE; CLOSTRIDIUM DIFFICILE TOXIN NEGATIVE (Negative)
[2019-01-22 05:37] LABS: ANION GAP 8 mmol/L (5-15); CALCIUM 8.3 mg/dL (8.5-10.1); CHLORIDE 106 mmol/L (98-107); CREATININE 1.07 mg/dL (0.7-1.3)
[2019-01-22 05:56] LABS: BASOPHILS # (AUTO) 0.04 x10^3/uL (0-0.1); BASOPHILS % (AUTO) 0 % (0-1); EOSINOPHILS # (AUTO) 0.12 x10^3/uL (0-0.4); EOSINOPHILS % (AUTO) 1 % (1-7); LYMPHOCYTES # (AUTO) 0.98 x10^3/uL (1-3.4); LYMPHOCYTES % (AUTO) 10 % (22-44); MD NO; MEAN CORPUSCULAR HEMOGLOBIN 31.9 pg (27.5-34.5); MEAN CORPUSCULAR HGB CONC 34.8 g/dL (33.2-36.2); MEAN CORPUSCULAR VOLUME 91.7 fL (81-97); MEAN PLATELET VOLUME 8.5 fL (7.4-10.4); MONOCYTES # (AUTO) 0.65 x10^3/uL (0.2-0.8); MONOCYTES % (AUTO) 7 % (2-9); NEUTROPHILS # (AUTO) 7.84 x10^3/uL (1.8-6.8); NEUTROPHILS % (AUTO) 82 % (42-75); PLATELET COUNT 170 x10^3/uL (130-400); RED BLOOD COUNT 4.28 x10^6/uL (4.38-5.82); RED CELL DISTRIBUTION WIDTH 13.1 % (9.4-14.8)
[2019-01-22] MEDS: ASPIRIN 81 MG TABLET EC PO SCH (05:59)
[2019-01-22] MEDS ORDERED: POTASSIUM CHLORIDE 20 MEQ TAB.ER.PRT PO ONE (07:30)
[2019-01-22 07:50] VITALS: BP 96/65
[2019-01-22] MEDS: FUROSEMIDE 20 MG TABLET PO SCH (08:53)
[2019-01-22] MEDS ORDERED: POTASSIUM CHLORIDE 10 MEQ TABLET.ER PO SCH (09:00)
[2019-01-22] MEDS: METOPROLOL SUCCINATE 100 MG TAB.ER.24H PO SCH (09:00)
[2019-01-22] MEDS: DIGOXIN 0.125 MG TABLET PO SCH (09:00)
[2019-01-22] MEDS: CIPROFLOXACIN/PMX 400MG/200ML 200 ML IV SCH ×2 (09:30→21:39)
[2019-01-22] MEDS: morphine SULFATE 10 MG/ML, 1ML IVPush PRN ×2 (09:34→20:25)
[2019-01-22 12:58] VITALS: BP 100/66
[2019-01-22 19:09] VITALS: BP 100/63
[2019-01-22] MEDS ORDERED: ACETAMINOPHEN 325 MG TABLET PO PRN (21:00)
[2019-01-23] MEDS: METRONIDAZOLE PMX 500MG/100ML 100 ML IV SCH ×4 (00:10→17:18)
[2019-01-23 02:42] VITALS: BP 110/72
[2019-01-23] MEDS: morphine SULFATE 10 MG/ML, 1ML IVPush PRN (02:48)
[2019-01-23] MEDS: ASPIRIN 81 MG TABLET EC PO SCH (06:03)
[2019-01-23 06:46] VITALS: BP 114/75
[2019-01-23 08:32] LABS: BASOPHILS # (AUTO) 0.03 x10^3/uL (0-0.1); BASOPHILS % (AUTO) 0 % (0-1); EOSINOPHILS # (AUTO) 0.74 x10^3/uL (0-0.4); EOSINOPHILS % (AUTO) 8 % (1-7); LYMPHOCYTES # (AUTO) 1.08 x10^3/uL (1-3.4); LYMPHOCYTES % (AUTO) 12 % (22-44); MD NO; MEAN CORPUSCULAR HEMOGLOBIN 31.4 pg (27.5-34.5); MEAN CORPUSCULAR HGB CONC 34.1 g/dL (33.2-36.2); MEAN CORPUSCULAR VOLUME 92.2 fL (81-97); MEAN PLATELET VOLUME 8.2 fL (7.4-10.4); MONOCYTES % (AUTO) 11 % (2-9); NEUTROPHILS # (AUTO) 5.99 x10^3/uL (1.8-6.8); NEUTROPHILS % (AUTO) 68 % (42-75); PLATELET COUNT 166 x10^3/uL (130-400); RED BLOOD COUNT 4.27 x10^6/uL (4.38-5.82); RED CELL DISTRIBUTION WIDTH 12.6 % (9.4-14.8)
[2019-01-23 08:45] LABS: ANION GAP 8 mmol/L (5-15); CALCIUM 8.2 mg/dL (8.5-10.1); CHLORIDE 107 mmol/L (98-107); CREATININE 1.06 mg/dL (0.7-1.3)
[2019-01-23] MEDS: CIPROFLOXACIN/PMX 400MG/200ML 200 ML IV SCH ×2 (09:30→21:36)
[2019-01-23] MEDS: FUROSEMIDE 20 MG TABLET PO SCH (10:38)
[2019-01-23] MEDS: LISINOPRIL 5 MG TABLET PO SCH ×2 (10:38→21:36)
[2019-01-23] MEDS: METOPROLOL SUCCINATE 100 MG TAB.ER.24H PO SCH (10:38)
[2019-01-23] MEDS: DIGOXIN 0.125 MG TABLET PO SCH (10:39)
[2019-01-23] MEDS: APIXABAN 5 MG TABLET PO SCH ×2 (10:39→21:36)
[2019-01-23] MEDS: HYDROcodone/APAP 5/325 TABLET PO PRN ×2 (11:25→17:18)
[2019-01-23 13:10] VITALS: BP 112/75
[2019-01-23 19:29] VITALS: BP 108/76
[2019-01-23] MEDS: SIMVASTATIN 20 MG TABLET PO SCH (21:36)
[2019-01-24] MEDS: METRONIDAZOLE PMX 500MG/100ML 100 ML IV SCH ×3 (00:31→12:21)
[2019-01-24] MEDS: HYDROcodone/APAP 5/325 TABLET PO PRN ×2 (00:33→09:34)
[2019-01-24 03:10] VITALS: BP 125/89
[2019-01-24] MEDS: ASPIRIN 81 MG TABLET EC PO SCH (05:44)
[2019-01-24 07:55] VITALS: BP 132/85
[2019-01-24] MEDS: APIXABAN 5 MG TABLET PO SCH ×2 (09:35→20:45)
[2019-01-24] MEDS: METOPROLOL SUCCINATE 100 MG TAB.ER.24H PO SCH (09:36)
[2019-01-24] MEDS: LISINOPRIL 5 MG TABLET PO SCH ×2 (09:37→20:44)
[2019-01-24] MEDS: FUROSEMIDE 20 MG TABLET PO SCH (09:38)
[2019-01-24] MEDS: DIGOXIN 0.125 MG TABLET PO SCH (09:39)
[2019-01-24] MEDS: CIPROFLOXACIN/PMX 400MG/200ML 200 ML IV SCH (10:26)
[2019-01-24] MEDS ORDERED: KETOROLAC 30 MG/1 ML IM PRN (12:30)
[2019-01-24] MEDS: metroNIDAZOLE 500 MG TABLET PO SCH ×2 (12:30→20:45)
[2019-01-24 13:45] VITALS: BP 123/88
[2019-01-24] MEDS ORDERED: KETOROLAC 30 MG/1 ML IVPush PRN (18:30)
[2019-01-24 18:50] VITALS: BP 148/93
[2019-01-24] MEDS ORDERED: CIPROFLOXACIN 500 MG TABLET ONE (20:41)
[2019-01-24] MEDS ORDERED: CIPROFLOXACIN 250 MG TABLET ONE (20:41)
[2019-01-24] MEDS: SIMVASTATIN 20 MG TABLET PO SCH (20:45)
[2019-01-24] MEDS: CIPROFLOXACIN 750 MG TABLET PO SCH (20:45)
[2019-01-25] MEDS: HYDROcodone/APAP 5/325 TABLET PO PRN (02:14)
[2019-01-25] MEDS: metroNIDAZOLE 500 MG TABLET PO SCH ×4 (02:14→20:09)
[2019-01-25 02:18] VITALS: BP 139/84
[2019-01-25] MEDS: ASPIRIN 81 MG TABLET EC PO SCH (06:19)
[2019-01-25 07:57] VITALS: BP 136/96
[2019-01-25] MEDS ORDERED: CIPROFLOXACIN 250 MG TABLET ONE (08:45)
[2019-01-25] MEDS ORDERED: CIPROFLOXACIN 500 MG TABLET ONE (08:45)
[2019-01-25] MEDS: METOPROLOL SUCCINATE 100 MG TAB.ER.24H PO SCH (08:52)
[2019-01-25] MEDS: APIXABAN 5 MG TABLET PO SCH ×2 (08:52→20:08)
[2019-01-25] MEDS: DIGOXIN 0.125 MG TABLET PO SCH (08:52)
[2019-01-25] MEDS: FUROSEMIDE 20 MG TABLET PO SCH (08:52)
[2019-01-25] MEDS: LISINOPRIL 5 MG TABLET PO SCH ×2 (08:52→20:09)
[2019-01-25] MEDS: CIPROFLOXACIN 750 MG TABLET PO SCH ×2 (08:53→20:08)
[2019-01-25 14:15] VITALS: BP 125/56
[2019-01-25 19:52] VITALS: BP 131/86
[2019-01-25] MEDS: SIMVASTATIN 20 MG TABLET PO SCH (20:09)
[2019-01-26 01:03] VITALS: BP 143/88
[2019-01-26] MEDS: metroNIDAZOLE 500 MG TABLET PO SCH ×2 (03:17→08:19)
[2019-01-26] MEDS: ASPIRIN 81 MG TABLET EC PO SCH (05:30)
[2019-01-26 06:52] VITALS: BP_SYST 143; BP_SYST 145; BP_DIAS 102; BP_DIAS 88
[2019-01-26] MEDS: LISINOPRIL 5 MG TABLET PO SCH (08:19)
[2019-01-26] MEDS: CIPROFLOXACIN 750 MG TABLET PO SCH (08:19)
[2019-01-26] MEDS: DIGOXIN 0.125 MG TABLET PO SCH (08:19)
[2019-01-26] MEDS: APIXABAN 5 MG TABLET PO SCH (08:19)
[2019-01-26] MEDS: FUROSEMIDE 20 MG TABLET PO SCH (08:20)
[2019-01-26] MEDS: METOPROLOL SUCCINATE 100 MG TAB.ER.24H PO SCH (08:20)
[2019-01-26] MEDS ORDERED: CIPR750T PO (10:01)
[2019-01-26] MEDS ORDERED: METR500T PO (10:01)
== END 2019-01-26 11:57 | disposition home or self-care (01) | DRG 392 ==
LOC: ED 20:26 → EDIP 20:27 → 3NE 23:45
PROVIDERS: ADMIT Internal Medicine; ATTEND Internal Medicine
DX: A09 Infectious gastroenteritis and colitis, unspecified (principal); D68.69 Other thrombophilia; I50.22 Chronic systolic (congestive) heart failure; E11.9 Type 2 diabetes mellitus without complications; E78.5 Hyperlipidemia, unspecified; I11.0 Hypertensive heart disease with heart failure; K21.9 Gastro-esophageal reflux disease without esophagitis; I48.91 Unspecified atrial fibrillation; Z79.01 Long term (current) use of anticoagulants; Z59.0 Homelessness; Z82.49 Family history of ischemic heart disease and other diseases of the circulatory system
CPT/HCPCS: 36415; 74018; 74177; 80048; 80053; 81003; 83690; 85025; 85610; 85730; 87040; 87324; 89055; 96365; 96375; G0378; J0744; J1885; J2405; Q0162; Q9967; J2270

== ENCOUNTER 2019-02-12 18:56 | Emergency (ER) | payer MEDICAID ==
[~2019-02-12] VITALS: Ht 170.2 cm; Wt 70.5 kg
[~2019-02-12 18:56] MED LIST changes: +CIPR750T PO; +DIGO125T PO; +METO200T47 PO; +METR500T PO
[2019-02-12 19:50] LABS: BASOPHILS # (AUTO) 0.05 x10^3/uL (0-0.1); BASOPHILS % (AUTO) 1 % (0-1); EOSINOPHILS # (AUTO) 0.12 x10^3/uL (0-0.4); EOSINOPHILS % (AUTO) 1 % (1-7); LYMPHOCYTES # (AUTO) 1.53 x10^3/uL (1-3.4); LYMPHOCYTES % (AUTO) 16 % (22-44); MD NO; MEAN CORPUSCULAR HEMOGLOBIN 30.6 pg (27.5-34.5); MEAN CORPUSCULAR HGB CONC 33.5 g/dL (33.2-36.2); MEAN CORPUSCULAR VOLUME 91.4 fL (81-97); MEAN PLATELET VOLUME 8.6 fL (7.4-10.4); MONOCYTES # (AUTO) 1.34 x10^3/uL (0.2-0.8); MONOCYTES % (AUTO) 14 % (2-9); NEUTROPHILS # (AUTO) 6.66 x10^3/uL (1.8-6.8); NEUTROPHILS % (AUTO) 69 % (42-75); PLATELET COUNT 186 x10^3/uL (130-400); RED BLOOD COUNT 4.32 x10^6/uL (4.38-5.82); RED CELL DISTRIBUTION WIDTH 13.3 % (9.4-14.8)
--- NOTE | 2019-02-12 19:55 | NUR ---
TO ROOM FROM LOBBY. NAD.
[2019-02-12 19:58] LABS: ALBUMIN 3.2 g/dL (3.4-5.0); ANION GAP 7 mmol/L (5-15); CALCIUM 8.8 mg/dL (8.5-10.1); CHLORIDE 107 mmol/L (98-107)
--- NOTE | 2019-02-12 20:00 | NUR ---
FIRST CONTACT W/ PT: ATTEMPTING UA AT THIS TIME.
[2019-02-12 20:02] LABS: ALANINE AMINOTRANSFERASE 25 U/L (12-78); ALKALINE PHOSPHATASE 92 U/L (45-117); BILIRUBIN,TOTAL 0.7 mg/dL (0.2-1.0); TOTAL PROTEIN 6.6 g/dL (6.4-8.2)
--- NOTE | 2019-02-12 20:06 | NUR ---
PT PRESENTS TO ED C/O RECENT HOSPITALIZATION FROM COLITIS AND DIVERTICULITIS. STATES LAST ABXx2 WEEKS AGO. STATES DIFFUSE ABD PAINx2 DAYS W/ "DIARRHEA EVERY ONCE IN AWHILE." DENIES ANY DIARRHEA AT THIS TIME. UNSUCCESSFUL ON UA. MONITORING APPLIED. BP ELEVATED. SELF REPORTED UNCONTROLLED HTN. AWAITING MD ASSESSMENT. CALL LIGHT WITHIN REACH.
[2019-02-12] MEDS ORDERED: OMNIPAQUE 350 MG/ML, 100ML BOTTLE ONE (21:02)
[2019-02-12] MEDS ORDERED: DIGOXIN 0.25 MG/ML, 2ML ONE (21:09)
--- NOTE | 2019-02-12 21:14 | NUR ---
PT BACK FROM CT. GIVEN DIGOXIN PER EMAR. AWAITING CT RESULTS.
[2019-02-12] MEDS ORDERED: DIGOXIN 0.25 MG/ML, 2ML IVPush ONE (21:30)
[2019-02-12 21:50] VITALS: BP 166/112
[2019-02-12] MEDS ORDERED: metroNIDAZOLE 500 MG TABLET ONE (21:57)
[2019-02-12] MEDS ORDERED: CIPROFLOXACIN 500 MG TABLET ONE (21:57)
[2019-02-12] MEDS ORDERED: metroNIDAZOLE 500 MG TABLET PO ONE (22:00)
[2019-02-12] MEDS ORDERED: CIPROFLOXACIN 500 MG TABLET PO ONE (22:00)
== END 2019-02-12 22:08 | disposition home or self-care (01) ==
LOC: ED 22:02
DX: A09 Infectious gastroenteritis and colitis, unspecified (principal); I50.9 Heart failure, unspecified; I11.0 Hypertensive heart disease with heart failure; E11.9 Type 2 diabetes mellitus without complications; I48.91 Unspecified atrial fibrillation
CPT/HCPCS: 36415; 74177; 80053; 80162; 83690; 85025; 93005; 96374; 99284; J1160; Q9967

== ENCOUNTER 2019-11-09 04:26 | Inpatient (IN) | payer MEDICAID, OTHER ==
[~2019-11-09] VITALS: Ht 170.2 cm; Wt 97.8 kg
[2019-11-09 04:55] LABS: BASOPHILS # (AUTO) 0.07 x10^3/uL (0-0.1); BASOPHILS % (AUTO) 1 % (0-1); EOSINOPHILS # (AUTO) 0.08 x10^3/uL (0-0.4); EOSINOPHILS % (AUTO) 1 % (1-7); LYMPHOCYTES # (AUTO) 2.09 x10^3/uL (1-3.4); LYMPHOCYTES % (AUTO) 34 % (22-44); MD NO; MEAN CORPUSCULAR HEMOGLOBIN 32.7 pg (27.5-34.5); MEAN CORPUSCULAR HGB CONC 33.2 g/dL (33.2-36.2); MEAN CORPUSCULAR VOLUME 98.5 fL (81-97); MEAN PLATELET VOLUME 8.5 fL (7.4-10.4); MONOCYTES # (AUTO) 0.77 x10^3/uL (0.2-0.8); MONOCYTES % (AUTO) 13 % (2-9); NEUTROPHILS # (AUTO) 3.15 x10^3/uL (1.8-6.8); NEUTROPHILS % (AUTO) 51 % (42-75); PLATELET COUNT 197 x10^3/uL (130-400); RED BLOOD COUNT 4.69 x10^6/uL (4.38-5.82); RED CELL DISTRIBUTION WIDTH 13.6 % (9.4-14.8)
[2019-11-09] MEDS ORDERED: METOPROLOL 1 MG/ML, 5ML ONE ×2 (04:56→05:07)
[2019-11-09] MEDS: METOPROLOL 1 MG/ML, 5ML IVPush PRN ×3 (04:58→07:04)
[2019-11-09 05:07] LABS: ALBUMIN 3.3 g/dL (3.4-5.0); ANION GAP 9 mmol/L (5-15); CALCIUM 8.4 mg/dL (8.5-10.1); CHLORIDE 104 mmol/L (98-107); CREATININE 1.13 mg/dL (0.7-1.3)
[2019-11-09 05:10] LABS: TROPONIN I 0.085 ng/mL (0.000-0.045)
[2019-11-09] MEDS ORDERED: MORPHINE SULFATE 4 MG/ML, 1ML IVPush PRN (05:30)
[2019-11-09] MEDS ORDERED: SODIUM CHLORIDE FLUSH 10ML SYR IVF ONE (05:30)
[2019-11-09] MEDS ORDERED: NITROGLYCERIN SINGLE TAB 0.4 MG SL PRN (05:30)
[2019-11-09] MEDS ORDERED: NITROGLYCERIN SINGLE TAB 0.4 MG SL ONE (06:30)
[2019-11-09] MEDS ORDERED: MORPHINE SULFATE 4 MG/ML, 1ML ONE (06:51)
[2019-11-09] MEDS ORDERED: SODIUM CHLORIDE FLUSH 10ML SYR IVF PRN (07:00)
[2019-11-09] MEDS ORDERED: METOPROLOL 1 MG/ML, 5ML IVPush ONE (07:30)
[2019-11-09] MEDS ORDERED: ACETAMINOPHEN 325 MG TABLET PO PRN (07:30)
[2019-11-09] MEDS ORDERED: FUROSEMIDE 40 MG/4 ML IV ONE (07:30)
[2019-11-09] MEDS: ASPIRIN 81 MG TABLET EC PO SCH (07:55)
[2019-11-09] MEDS ORDERED: FUROSEMIDE 40 MG/4 ML ONE (07:59)
[2019-11-09 08:15] VITALS: BP 154/121
[2019-11-09] MEDS: FUROSEMIDE 20 MG TABLET PO SCH (08:44)
[2019-11-09] MEDS: METOPROLOL SUCCINATE 100 MG TAB.ER.24H PO SCH (08:52)
[2019-11-09] MEDS: POTASSIUM CHLORIDE 10 MEQ TABLET.ER PO SCH (08:53)
[2019-11-09] MEDS: APIXABAN 5 MG TABLET PO SCH ×2 (08:53→20:28)
[2019-11-09] MEDS: DIGOXIN 0.125 MG TABLET PO SCH (08:53)
[2019-11-09] MEDS ORDERED: LISINOPRIL 5 MG TABLET PO SCH (09:00)
[2019-11-09] MEDS ORDERED: MAGNESIUM SULFATE 3 GM in SODIUM CHLORIDE 0.9% 100 ML IV ONE ×2 (09:00→13:30)
[2019-11-09 10:03] VITALS: BP 136/106
[2019-11-09 11:55] LABS: TROPONIN I 0.026 ng/mL (0.000-0.045)
[2019-11-09 11:59] LABS: AMPHETAMINE SCREEN, URINE Negative (Negative); BARBITURATE SCREEN, URINE Negative (Negative); BENZODIAZEPINE SCREEN, URINE Negative (Negative); CANNABINOID SCREEN, URINE Negative (Negative); COCAINE SCREEN, URINE Negative (Negative); METHADONE SCREEN, URINE Negative (Negative); OPIATE SCREEN, URINE Positive (Negative)
[2019-11-09 12:28] VITALS: BP 153/117
[2019-11-09] MEDS ORDERED: LISINOPRIL 20 MG TABLET PO ONE (13:00)
[2019-11-09] MEDS ORDERED: FLU VACC QS2019-20 36MOS UP/PF 0.5 ML IM ONE (14:00)
[2019-11-09 15:15] VITALS: BP 127/97
[2019-11-09 17:28] LABS: TROPONIN I 0.042 ng/mL (0.000-0.045)
[2019-11-09 19:55] VITALS: BP 120/87
[2019-11-09] MEDS: SIMVASTATIN 20 MG TABLET PO SCH (20:28)
[2019-11-10 01:27] VITALS: BP 131/96
[2019-11-10 05:03] LABS: BASOPHILS # (AUTO) 0.05 x10^3/uL (0-0.1); BASOPHILS % (AUTO) 1 % (0-1); EOSINOPHILS # (AUTO) 0.19 x10^3/uL (0-0.4); EOSINOPHILS % (AUTO) 3 % (1-7); LYMPHOCYTES # (AUTO) 1.41 x10^3/uL (1-3.4); LYMPHOCYTES % (AUTO) 21 % (22-44); MD NO; MEAN CORPUSCULAR HEMOGLOBIN 32.7 pg (27.5-34.5); MEAN CORPUSCULAR VOLUME 99.1 fL (81-97); MONOCYTES # (AUTO) 0.75 x10^3/uL (0.2-0.8); MONOCYTES % (AUTO) 11 % (2-9); NEUTROPHILS # (AUTO) 4.19 x10^3/uL (1.8-6.8); NEUTROPHILS % (AUTO) 64 % (42-75); PLATELET COUNT 162 x10^3/uL (130-400); RED BLOOD COUNT 4.69 x10^6/uL (4.38-5.82); RED CELL DISTRIBUTION WIDTH 13.7 % (9.4-14.8)
[2019-11-10 05:13] LABS: ANION GAP 6 mmol/L (5-15); CALCIUM 8.6 mg/dL (8.5-10.1); CHLORIDE 103 mmol/L (98-107)
[2019-11-10 07:04] VITALS: BP 139/98
[2019-11-10] MEDS: ASPIRIN 81 MG TABLET EC PO SCH (09:28)
[2019-11-10] MEDS: FUROSEMIDE 20 MG TABLET PO SCH ×2 (09:29→20:16)
[2019-11-10] MEDS: APIXABAN 5 MG TABLET PO SCH ×2 (09:29→20:16)
[2019-11-10] MEDS: LISINOPRIL 20 MG TABLET PO SCH (09:30)
[2019-11-10] MEDS: POTASSIUM CHLORIDE 10 MEQ TABLET.ER PO SCH (09:31)
[2019-11-10] MEDS: METOPROLOL SUCCINATE 100 MG TAB.ER.24H PO SCH (09:31)
[2019-11-10] MEDS: DIGOXIN 0.125 MG TABLET PO SCH (09:32)
[2019-11-10 11:34] VITALS: BP 133/93
[2019-11-10] MEDS ORDERED: DIGOXIN 0.25 MG/ML, 2ML IVPush ONE (14:00)
[2019-11-10 14:04] VITALS: BP 115/78
[2019-11-10 18:30] VITALS: BP 144/108
[2019-11-10 18:33] VITALS: BP 140/85
[2019-11-10] MEDS: SIMVASTATIN 20 MG TABLET PO SCH (20:16)
[2019-11-11 00:31] VITALS: BP 144/62
[2019-11-11 05:29] LABS: ANION GAP 7 mmol/L (5-15); CALCIUM 8.8 mg/dL (8.5-10.1); CHLORIDE 102 mmol/L (98-107)
[2019-11-11 05:30] LABS: CREATININE 1.14 mg/dL (0.7-1.3)
[2019-11-11 07:36] VITALS: BP 138/102
[2019-11-11 08:13] VITALS: BP 140/100
[2019-11-11] MEDS: POTASSIUM CHLORIDE 10 MEQ TABLET.ER PO SCH (08:14)
[2019-11-11] MEDS: ASPIRIN 81 MG TABLET EC PO SCH (08:14)
[2019-11-11] MEDS: DIGOXIN 0.125 MG TABLET PO SCH (08:14)
[2019-11-11] MEDS: FUROSEMIDE 20 MG TABLET PO SCH (08:14)
[2019-11-11] MEDS: LISINOPRIL 20 MG TABLET PO SCH (08:14)
[2019-11-11] MEDS: APIXABAN 5 MG TABLET PO SCH (08:14)
[2019-11-11] MEDS: METOPROLOL SUCCINATE 100 MG TAB.ER.24H PO SCH (08:14)
[2019-11-11] MEDS ORDERED: REGADENOSON 0.4 MG/5 ML SYRINGE ONE (08:41)
[2019-11-11 10:37] VITALS: BP 142/96
[2019-11-11] MEDS ORDERED: MAGNESIUM SULFATE PMX 2GM/50ML 50 ML IV ONE (13:30)
[2019-11-11 14:00] VITALS: BP 128/87
[2019-11-11] MEDS ORDERED: LISI-170 PO (16:13)
[2019-11-11] MEDS ORDERED: SPIR25TA PO (16:13)
[2019-11-11] MEDS ORDERED: METH750T87 PO (17:40)
== END 2019-11-11 18:13 | disposition home or self-care (01) | DRG 309 ==
LOC: ED 05:18 → EDIP 06:40 → 5SO 08:20
PROVIDERS: ADMIT Internal Medicine Infectious Disease; ATTEND Internal Medicine Infectious Disease
DX: I48.91 Unspecified atrial fibrillation (principal); I20.0 Unstable angina; I50.22 Chronic systolic (congestive) heart failure; R07.89 Other chest pain; E11.9 Type 2 diabetes mellitus without complications; E78.5 Hyperlipidemia, unspecified; E83.42 Hypomagnesemia; I11.0 Hypertensive heart disease with heart failure; Z79.01 Long term (current) use of anticoagulants; Z82.49 Family history of ischemic heart disease and other diseases of the circulatory system
CPT/HCPCS: 36415; 71045; 78452; 80048; 80162; 80307; 82040; 83735; 83880; 84100; 84443; 84484; 85025; 90686; 93005; 93017; 93306; 96374; G0378; J1940; J2785; J3475; A9502; C9898; J1160; J2270